=== PATIENT | female | born 1990 | race Hispanic/Latino ===

== ENCOUNTER 2016-12-28 21:17 | Emergency (ER) | payer OTHER ==
[~2016-12-28] VITALS: Ht 162.6 cm; Wt 68.2 kg
[2016-12-28 21:20] VITALS: BP 124/82; PULSE 100; RESP 16; O2SAT 100
--- NOTE | 2016-12-28 21:34 | ED.REPORT ---
HPI-General Illness Date of Service Dec 28, 2016 ED Provider: Ben May MD Pt is a 9 wk generally healthy 26 y/o female presenting to the ED c/o painful mass over left buttock onset 1 day ago. She denies fever, chills, drainage, nausea, vomiting. There have been no complications and she denies vaginal bleeding. She has never experienced this before. Nursing Notes Stated Complaint: CYST/MASS ON BUTTOCK Chief Complaint: Skin Rash/Abscess Nursing Notes Reviewed: Yes Allergies: Coded Allergies: No Known Allergies (Verified , 12/28/16) No Active Prescriptions or Reported Meds General Time Seen by MD: 21:24 Chief Complaint Rash Hx Obtained From: Patient Arrived By: Walk-in Sudden in Onset?: No Onset Occurred: Yesterday Symptom Duration: Since onset Quality: Painful Radiation: : Does not radiate Severity: Current: Mild Severity: Maximum: Moderate Similar Sx Previous: No Past Medical History Past Medical History Notes: Patient is Past Medical History Denies Past Surgical History Denies history of abdominal surgeries Smoking History Never Smoker Social History Alcohol Use: Denies alcohol use Drug Use: Denies drug use Ambulatory Status Independent Review of Systems Full Review of Systems Constitutional: Denies: Chills, Fever GI: Denies: Nausea, Vomiting Skin: Reports Rash Complete sys rev & neg: except as marked. Physical Exam Vital Signs Vital Signs Date Time Temp Pulse Resp B/P Pulse Ox O2 Delivery O2 Flow Rate FiO2 12/28/16 22:55 99 16 110/53 100 Room Air 12/28/16 21:20 36.4 100 16 124/82 100 Room Air Initial VS: Reviewed, Vital signs normal Head / Eyes: Atraumatic, Normocephalic, PERRL ENT: Mucous membranes moist, Conjunctiva normal, No scleral icterus Neck: Supple, Full range of motion Respiratory: Breath sounds normal, Clear to auscultation, No respiratory distress Cardiovascular: Regular rate & rhythm, Heart sounds normal, Intact distal pulses Abdomen / GI: Soft, Non-tender Extremities: Vascular intact, Neuro intact, No swelling Neurologic: Alert, Oriented, Nonfocal Psychiatric: Mood/affect normal, Behavior normal, Normal thought content General/Constitutional: Awake, Alert, No acute distress, Well appearing, Cooperative, Not toxic appearing Skin: Warm, Dry, Intact Rash / Lesion Notes: Region of mild fluctuance and induration left buttock measuring 2x2 cm with surround erythema extending out 3 cm. No active purulent drainage present Procedures Incision & Drainage Abscess I & D Abscess: 2 cm incision Loculations broken up Time: 22:18 Procedure Performed by: ED physician Consent / Setup / Site Prep: Consent from patient, Hand hygiene observed, Stand sterile technique, Sterile drapes applied Location of Abscess: Left buttock Skin Preparation Agent: Betadine Local Anesthesia: Lidocaine w epi 1% Incised Abscess with Scalpel: #11 Pus Drained: Small, Purulent discharge, Bloody, Serosanguinous Post-Procedure / Complications: Packing placed (1/4 inch), Culture obtained , Dressing applied, No complications, Condition improved, Tolerated procedure well, Patient stable Re-Eval/Medical Decision Med Decision/Clinical Course Pt is a 9 wk generally healthy 26 y/o female presenting to the ED c/o painful mass over left buttock onset 1 day ago. She denies fever, chills, drainage, nausea, vomiting. There have been no complications and she denies vaginal bleeding. She has never experienced this before. Here in the emergency department the patient is afebrile, hemodynamically stable and in no apparent distress. There is no evidence on history or examination suggestive of acute complication related to her . She has obvious abscess with some mild surrounding cellulitis about her left buttock. Incision and drainage was performed as documented above. Wound culture sent. Patient prescribed course of Augmentin. Provided with [place] for pain. She will return for packing removal in 48 hours. Return sooner for any fevers, increased swelling or redness.Prior to discharge follow-up and return precautions were reviewed in detail with the patient who verbalized understanding and agreement with the plan. The patient was discharged in stable condition. Time of Eval: 22:22 Re-Evaluation/Progress Note: Pt rechecked. Procedure performed without complications. Informed pt of plan for treatment. Pt understands and agrees with plan for treatment. F/U instructions and RTER warnings given. All questions addressed. Counseled Regarding: Diagnosis, Need for follow-up, When/why to return to ED Discharge & Departure Primary Impression: Abscess of buttock, left Additional Impression: Cellulitis of buttock, left Disposition: Home Discharge Condition All VS Reviewed: Yes Condition: Improved Patient Instructions: Abscess (ED), Cellulitis (ED) Additional Instructions: Thank you for seeking care at the emergency room. You have a buttock abscess with surrounding cellulitis, infection of the skin. Our primary goal today in the ED was to evaluate you for any life-threatening conditions. Your evaluation was reassuring. The abscess was incised and drained today. Sterile packing was placed. You will be discharged with a prescription for antibiotics, take this as directed. You are also being given [place] for pain management. Take 1-2 tablets every 6 hours as needed. See the instructions below for this medication. Use warm compresses. Try to avoid significant pressure to the area. Return to the ED, urgent care, or your primary care doctor, for packing removal and wound recheck in 48 hours. You should return to the ED immediately if you develop fevers, vomiting, worsening redness, swelling, discharge of pus, lightheadedness, weakness or any other concerning signs or symptoms. Thank you for letting us partake in your care today. You have been prescribed a narcotic for pain relief. These drugs are usually combined with acetaminophen (Tylenol#3, Percocet, Darvocet, Anexsia, Vicodin) or aspirin (Empirin#3, Percodan, Synalogs-DC) for increased effect. Narcotics act on the central nervous system to reduce pain; they also impair mental alertness and physical abilities. We advise you not to drink alcohol, drive a car, or operate dangerous equipment when you are taking these drugs. You can lessen stomach irritation from your medicine by taking it with meals or a full glass of water. Common side effects of narcotics are: Nausea and vomiting, heartburn, constipation, dizziness, sleepiness, and mood changes. If you have bothersome side effects or symptoms of an allergic reaction (itching, hives, rash), stop taking your medicine and call your doctor or the emergency room right away. Please keep your narcotic medicine well out of the reach of children. Referrals: [facility] Scribe Attestation Portions of this note were transcribed by Benson Rios. I, Dr. May personally performed the history, physical exam and medical decision-making; I reviewed and confirmed the accuracy of the information in the transcribed note. Signed by Jumana Chao, 12/28/162199 Ben May MD Dec 28, 2016 21:34 BENSON RIOS Dec 28, 2016 21:38
[2016-12-28] MEDS ORDERED: Lidocaine 1%/Epi 1:100,000 30 mL MDV INFILTRATE ONE (21:50)
[2016-12-28] MEDS ORDERED: _HYDROcodone/APAP 5-325 mg Tablet PO PRN (21:50)
[2016-12-28] MEDS ORDERED: Amoxicillin-Clav 875-125 mg Tablet PO ONE (21:55)
[2016-12-28 22:55] VITALS: BP 110/53; PULSE 99; RESP 16; O2SAT 100
[2016-12-29] MEDS ORDERED: _Amoxicillin-Clavulanate 875-125 mg Tablet PO SCH (08:30)
== END 2016-12-28 22:56 | disposition home or self-care (01) ==
LOC: SED 21:17
DX: O26.891 Other specified pregnancy related conditions, first trimester (principal); L02.31 Cutaneous abscess of buttock; L03.317 Cellulitis of buttock; Z3A.09 9 weeks gestation of pregnancy